=== PATIENT | female | born 1930 | race African-American/Black ===

== ENCOUNTER 2019-10-13 16:13 | Emergency (ER) | payer OTHER ==
[~2019-10-13] VITALS: Ht 167.6 cm; Wt 105.2 kg
[2019-10-13 16:14] VITALS: BP 160/66
--- NOTE | 2019-10-13 16:35 | NUR ---
PT BIBA C/O NAUSEA, VOMITING, WEAKNESS, AND LOOSE STOOL FOR 3 DAYS; RESTLESSNESS AND DYSURIA TODAY AND GENERALIZED BODY PAIN 9/10. VSS; PATIENT POSITIONED FOR COMFORT; HOB ELEVATED; BEDRAILS UP X2; BED DOWN. ER MD MADE AWARE OF PT STATUS. FAMILY MEMBER IS AT BEDSIDE.
--- NOTE | 2019-10-13 17:11 | NUR ---
Note ally in ED - 10/13/19 at 1715 by SAVI PT IS SLEEPING IN THE BED. VSS. DAUGHTER IS AT BEDSIDE.
--- NOTE | 2019-10-13 17:11 | NUR ---
PT IS SLEEPING IN THE BED. VSS. GRANDDAUGHTER IS AT BEDSIDE.
--- NOTE | 2019-10-13 18:02 | NUR ---
PT IS RESTING IN THE BED WITH EYES CLOSED. NO VOMITING AT THIS TIME. WATER PROVIDED TO PT. PT IS ABLE TO DRINK WATER.
--- NOTE | 2019-10-13 19:10 | NUR ---
Pt report given to FANY Fishman. Transfer of care at this time.
--- NOTE | 2019-10-13 19:10 | NUR ---
REPORT FROM KEE SOARES
[2019-10-13] MEDS ORDERED: ONDANSETRON 4 MG/2 ML VIAL IVP ONE ×2 (19:30→23:45)
[2019-10-13] MEDS ORDERED: fentaNYL 0.05 MG/ML VIAL IVP ONE (19:30)
[2019-10-13 20:04] LABS: HEMOGLOBIN 10.5 g/dL (12.0-16.0); MEAN CORPUSCULAR HEMOGLOBIN 30 pg (27-31); MEAN CORPUSCULAR HGB CONC 33 g/dL (33-37); MEAN CORPUSCULAR VOLUME 92.4 fL (80-94); PLATELET COUNT (AUTO) 132 K/uL (140-450); RED BLOOD CELL COUNT(AUTO) 3.47 MIL/uL (4.20-5.40); RED CELL DISTRIBUTION WIDTH 14.9 % (11.6-13.7)
[2019-10-13 20:30] LABS: ALBUMIN 2.6 g/dL (3.4-5.0); ANION GAP 12.4 (8-16); ASPARTATE AMINOTRANSFERASE 58 U/L (15-37); CARBON DIOXIDE 24.4 mmol/L (21-32); CHLORIDE 90 mmol/L (98-107); CREATININE 1.2 mg/dL (0.6-1.3); GLUCOSE 130 mg/dL (74-106); POTASSIUM 3.8 mmol/L (3.5-5.1); SODIUM SERUM 123 mmol/L (136-145); TOTAL BILIRUBIN 0.5 mg/dL (0.0-1.0); UREA NITROGEN, BLOOD 15 mg/dL (7-18)
--- NOTE | 2019-10-13 20:38 | NUR ---
# 14 FR Urinary catheter inserted utilizing sterile technique. Immediate return of 300 ml CLEAR YELLOW urine noted. Urine sample collected and sent to lab. Pt tolerated procedure WELL.
[2019-10-13] MEDS ORDERED: NACL 0.9% 1,000 ML IV SCH (20:45)
[2019-10-13 20:46] LABS: LYMPHOCYTES % (MANUAL) 44 % (20-46); MONOCYTES % (MANUAL) 20 % (5-12)
--- NOTE | 2019-10-13 20:55 | NUR ---
PT HYPOTENSIVE AT 83/47, DR GARZA NOTIFIED, PER DR GARZA START 1000ML NS BOLUS
[2019-10-13] MEDS ORDERED: NACL 0.9% 1,000 ML IV ONE (21:45)
--- NOTE | 2019-10-13 21:46 | NUR ---
Alfonso canales in [facility] - 10/13/19 at 2147 by SARAH PT RESPONDED WELL TO NS, BP NOW UP TO
--- NOTE | 2019-10-13 21:47 | NUR ---
PT RESPONDED WELL TO NS, BP NOW UP TO 124/51
[2019-10-13 22:10] LABS: APPEARANCE,URINE CLEAR (CLEAR); BILIRUBIN,URINE NEGATIVE (NEGATIVE); BLOOD, URINE NEGATIVE (NEGATIVE); COLOR,URINE YELLOW (YELLOW); LEUKOCYTE ESTERASE ,URINE NEGATIVE (NEGATIVE); NITRITE, URINE NEGATIVE (NEGATIVE); UGLUCOSE NEGATIVE (NEGATIVE)
[2019-10-13 22:24] LABS: HYALINE CASTS, URINE 0-5 /LPF (None Seen); RBC,URINE 0-5 /HPF (0-5); WBC,URINE 0-5 /HPF (0-5)
--- NOTE | 2019-10-13 22:43 | NUR ---
recorded waste for fentanyl. Wasted 75mcg, administered 25 mcg. Felicia rn witnessed, not sure if omnicel recorded correctly
[2019-10-13 23:58] VITALS: BP 131/51
--- NOTE | 2019-10-14 | NUR ---
Patient discharged with v/s stable. Written and verbal after care instructions given and explained. Patient alert, oriented and verbalized understanding of instructions. Wheel Chair Assisted with to car. All questions addressed prior to discharge. ID band removed. Patient advised to follow up with PMD. Rx of PHENERGAN given. Patient educated on indication of medication including possible reaction and side effects. Opportunity to ask questions provided and answered.
--- NOTE | 2019-10-16 08:47 | NUR ---
Late entry. COnfirmed with RN that 0.9 NS IV completed at 0809
== END 2019-10-14 | disposition home or self-care (01) ==
LOC: MED 16:13
DX: E86.0 Dehydration (principal); B34.9 Viral infection, unspecified; F41.9 Anxiety disorder, unspecified; K21.9 Gastro-esophageal reflux disease without esophagitis; I10 Essential (primary) hypertension; E11.40 Type 2 diabetes mellitus with diabetic neuropathy, unspecified
CPT/HCPCS: 36415; 36600; 71045; 80053; 81001; 82550; 82553; 82803; 83605; 83874; 83880; 84484; 85025; 85610; 85730; 87040; 87086; 87804; 93005; 96361; 96374; 96375; 96376; 99284; C1758; J2405; J3010; J7030; Q0092